=== PATIENT | female | born 1995 | race Caucasian/White ===

== ENCOUNTER 2023-09-06 20:38 | Inpatient (IN) | payer MEDICAID, SELFPAY ==
[~2023-09-06] VITALS: Ht 152.4 cm; Wt 77.2 kg
[2023-09-06 21:40] LABS: HEMATOCRIT 41.2 % (36.0-47.0); HEMOGLOBIN 13.9 g/dl (12.0-15.5); MEAN CORPUSCULAR HEMOGLOBIN 29.5 pg (27.0-33.0); MEAN CORPUSCULAR HGB CONC 33.7 g/dl (32.0-36.5); MEAN CORPUSCULAR VOLUME 87.5 fl (80.0-96.0); PLATELET COUNT, AUTOMATED 387 10^3/uL (150-450); RED BLOOD COUNT 4.71 10^6/uL (4.00-5.40); WHITE BLOOD COUNT 11.7 10^3/uL (4.0-10.0)
[2023-09-06 22:08] LABS: AMPHETAMINES LEVEL URINE NEGATIVE (NEGATIVE); BARBITURATES URINE NEGATIVE (NEGATIVE); BENZODIAZEPINES URINE NEGATIVE (NEGATIVE); COCAINE METABOLITE URINE NEGATIVE (NEGATIVE)
[2023-09-06 22:09] LABS: METHADONE URINE NEGATIVE (NEGATIVE); OPIATES URINE NEGATIVE (NEGATIVE); PHENCYCLIDINE URINE NEGATIVE (NEGATIVE)
[2023-09-06] MEDS ORDERED: LORazepam 1 MG TAB PO STA (22:10)
[2023-09-06 22:11] LABS: ETHYL ALCOHOL (ETHANOL) < 0.003 % (0.000-0.010)
[2023-09-06 22:13] LABS: ALBUMIN 4.6 G/DL (3.2-5.2); ALKALINE PHOSPHATASE 81 U/L (46-116); ALT/SGPT 20 U/L (7.0-40); AST/SGOT 24 U/L (<34); BILIRUBIN,DIRECT 0.1 MG/DL (<0.4); BILIRUBIN,TOTAL 0.4 MG/DL (0.3-1.2); BLOOD UREA NITROGEN 11 MG/DL (9-23); CARBON DIOXIDE LEVEL 22 MMOL/L (20-31); CHLORIDE LEVEL 110 MMOL/L (98-107); CREATININE FOR GFR 0.59 MG/DL (0.55-1.30); GLOMERULAR FILTRATION RATE > 60.0 (>60); GLUCOSE, FASTING 108 MG/DL (60-100); POTASSIUM SERUM 4.5 MMOL/L (3.5-5.1); SALICYLATE LEVEL < 3.0 MG/DL (<30); SODIUM LEVEL 144 MMOL/L (136-145); TOTAL PROTEIN 7.8 G/DL (5.7-8.2)
[2023-09-06 22:14] LABS: CANNABINOIDS URINE POSITIVE (NEGATIVE)
[2023-09-06 22:15] LABS: THYROID STIMULATING HORMONE 0.949 uIU/ML (0.55-4.78)
[2023-09-06 22:28] LABS: HCG, SERUM QUALITATIVE NEGATIVE (NEGATIVE)
[2023-09-07] MEDS ORDERED: IBUPROFEN 400MG TAB PO PRN (00:05)
[2023-09-07] MEDS ORDERED: ACETAMINOPHEN TAB 650MG DOSE (2X325MG) PO PRN (00:05)
[2023-09-07] MEDS ORDERED: MAALOX 30 ML SUSP *UDC PO PRN (00:05)
[2023-09-07] MEDS ORDERED: MOM 30ML SUSPENSION UDC PO PRN (00:05)
[2023-09-07] MEDS ORDERED: LORazepam 1 MG TAB PO PRN (00:05)
[2023-09-07] MEDS ORDERED: NICOTINE 21MG/24HR 1 EA TRANSDERMAL TD PRN (00:05)
[2023-09-07] MEDS ORDERED: MED REC CURRENTLY UNOBTAINABLE XX SCH (01:05)
[2023-09-07 06:40] VITALS: BP 148/103; TEMP 98.2; O2SAT 97
[2023-09-07] MEDS: OLANZapine 5 MG TAB PO SCH ×2 (10:24→22:01)
[2023-09-07 16:39] VITALS: BP 123/70; TEMP 97.9; O2SAT 100
[2023-09-08 06:51] VITALS: BP 136/84; TEMP 96.9; O2SAT 98
[2023-09-08] MEDS: OLANZapine 5 MG TAB PO SCH ×2 (09:15→20:57)
[2023-09-08 16:19] VITALS: BP 137/74; TEMP 98.5; O2SAT 98
[2023-09-09 06:48] VITALS: BP 123/76; TEMP 98; O2SAT 98
[2023-09-09] MEDS: OLANZapine 5 MG TAB PO SCH ×2 (08:10→20:26)
[2023-09-09 15:38] VITALS: BP 130/80; TEMP 98.1; O2SAT 98
[2023-09-09] MEDS: OLANZapine ORAL DISINTEGRATING TAB 5MG PO PRN (15:41)
[2023-09-10 06:50] VITALS: BP 103/55; TEMP 97.5; O2SAT 100
[2023-09-10] MEDS: OLANZapine 5 MG TAB PO SCH (08:46)
[2023-09-10 18:00] VITALS: BP 172/89; TEMP 98.1; O2SAT 99
[2023-09-10] MEDS: OLANZapine 10 MG TAB PO SCH (20:03)
[2023-09-11 06:39] VITALS: BP 138/78; TEMP 97.6; O2SAT 100
[2023-09-11] MEDS: OLANZapine 5 MG TAB PO SCH (09:33)
[2023-09-11 18:05] VITALS: BP 134/91; TEMP 98.2
[2023-09-11] MEDS: OLANZapine 10 MG TAB PO SCH (20:42)
[2023-09-12 06:29] VITALS: BP 132/79; TEMP 97.4; O2SAT 97
[2023-09-12] MEDS: OLANZapine 5 MG TAB PO SCH (09:03)
[2023-09-12] MEDS: OLANZapine 10 MG TAB PO SCH (21:30)
[2023-09-12] MEDS: traZODone 50 MG TAB PO PRN (21:30)
[2023-09-13 06:41] VITALS: BP 125/81; TEMP 97.2; O2SAT 97
[2023-09-13] MEDS: OLANZapine 5 MG TAB PO SCH (08:47)
[2023-09-13 16:52] VITALS: BP 131/81; TEMP 97.8; O2SAT 98
[2023-09-13] MEDS: traZODone 50 MG TAB PO PRN (21:01)
[2023-09-13] MEDS: OLANZapine 10 MG TAB PO SCH (21:02)
[2023-09-14 06:39] VITALS: BP 136/79; TEMP 98.1; O2SAT 99
[2023-09-14] MEDS: OLANZapine 10 MG TAB PO SCH ×2 (08:36→20:40)
[2023-09-14] MEDS: OLANZapine ORAL DISINTEGRATING TAB 5MG PO PRN (16:28)
[2023-09-14 16:34] VITALS: BP 125/86; TEMP 97.6; O2SAT 98
[2023-09-14] MEDS: traZODone 50 MG TAB PO PRN (20:40)
[2023-09-15 06:27] VITALS: BP 133/70; TEMP 97.3; O2SAT 98
[2023-09-15] MEDS: OLANZapine 10 MG TAB PO SCH ×2 (08:31→20:32)
[2023-09-15 18:30] VITALS: BP 120/82; TEMP 97.1
[2023-09-15] MEDS: diphenhydrAMINE 25MG CAP PO PRN (20:32)
[2023-09-15] MEDS: traZODone 50 MG TAB PO PRN (20:33)
[2023-09-16 06:34] VITALS: BP 123/77; TEMP 98.6; O2SAT 100
[2023-09-16] MEDS: OLANZapine 10 MG TAB PO SCH ×2 (09:15→20:31)
[2023-09-16 19:01] VITALS: BP 130/72; TEMP 97.1
[2023-09-16] MEDS: diphenhydrAMINE 25MG CAP PO PRN (20:31)
[2023-09-16] MEDS: traZODone 50 MG TAB PO PRN (20:31)
[2023-09-17 06:25] VITALS: BP 118/67; TEMP 98.9; O2SAT 98
[2023-09-17] MEDS: OLANZapine 10 MG TAB PO SCH ×2 (07:57→20:55)
[2023-09-17] MEDS: diphenhydrAMINE 25MG CAP PO PRN (07:57)
[2023-09-17] MEDS ORDERED: hydrOXYzine 50 MG TAB PO PRN (11:55)
[2023-09-17] MEDS: hydrOXYzine 50 MG TAB PO PRN (13:11)
[2023-09-17] MEDS: OLANZapine ORAL DISINTEGRATING TAB 5MG PO PRN (16:38)
[2023-09-17 17:52] VITALS: BP 132/83; TEMP 97.4; O2SAT 98
[2023-09-17] MEDS: traZODone 50 MG TAB PO PRN (20:55)
[2023-09-18 06:34] VITALS: BP 102/60; TEMP 97.7; O2SAT 98
[2023-09-18] MEDS: OLANZapine 10 MG TAB PO SCH ×2 (08:18→21:08)
[2023-09-18] MEDS: hydrOXYzine 50 MG TAB PO PRN ×2 (09:55→17:02)
[2023-09-18 16:16] VITALS: BP 123/84; TEMP 97.4; O2SAT 100
[2023-09-18] MEDS: traZODone 50 MG TAB PO PRN (21:09)
[2023-09-19 06:36] VITALS: BP 109/66; TEMP 97.2; O2SAT 98
[2023-09-19] MEDS: OLANZapine 10 MG TAB PO SCH ×2 (08:07→21:00)
[2023-09-19] MEDS: hydrOXYzine 50 MG TAB PO PRN ×2 (08:07→14:10)
[2023-09-19 17:16] VITALS: BP 130/85; TEMP 98.3
[2023-09-19] MEDS: traZODone 50 MG TAB PO PRN (21:00)
[2023-09-20 06:52] VITALS: BP 133/68; TEMP 99; O2SAT 98
[2023-09-20] MEDS: hydrOXYzine 50 MG TAB PO PRN (08:00)
[2023-09-20] MEDS: OLANZapine 10 MG TAB PO SCH (08:00)
[2023-09-20] MEDS ORDERED: OLAN1TAB20 PO ×2 (13:14)
[2023-09-20] MEDS ORDERED: TRAZ-252 PO (13:14)
[2023-09-20] MEDS ORDERED: HYDR50TA70 PO (13:14)
== END 2023-09-20 14:05 | disposition home or self-care (01) | DRG 751 ==
LOC: M ED 20:38 → EEVIPCON 09-07 00:04 → M ED INP 09-07 00:04 → M PSY 09-07 01:15
PROVIDERS: ADMIT Student in an Organized Health Care Education/Training Program; ATTEND Student in an Organized Health Care Education/Training Program
PROC: 8E0ZXY6 Isolation (ICD-10-PCS; principal; 2023-09-07)
DX: F29 Unspecified psychosis not due to a substance or known physiological condition (principal); U07.1 COVID-19; R45.851 Suicidal ideations; R45.850 Homicidal ideations; F43.10 Post-traumatic stress disorder, unspecified; F17.200 Nicotine dependence, unspecified, uncomplicated; Z71.6 Tobacco abuse counseling

== ENCOUNTER 2024-06-03 15:53 | Emergency (ER) | payer MEDICAID, OTHER ==
[~2024-06-03] VITALS: Ht 152.4 cm; Wt 91.5 kg
[~2024-06-03 15:53] MED LIST: HYDR50TA70 PO; OLAN1TAB20 PO; TRAZ-186 PO; TRAZ-252 PO; ZYPR10TA PO
[2024-06-03 16:57] LABS: BASO # 0.1 10^3/uL (0.0-0.2); BASO % 0.4 % (0.0-1.0); EOS # 0.1 10^3/uL (0.0-0.5); EOS % 0.5 % (0.0-3.0); HEMATOCRIT 42.1 % (36.0-47.0); HEMOGLOBIN 14.4 g/dl (12.0-15.5); LYMPH # 3.1 10^3/uL (1.5-5.0); LYMPH % 23.5 % (24.0-44.0); MEAN CORPUSCULAR HEMOGLOBIN 30.3 pg (27.0-33.0); MEAN CORPUSCULAR HGB CONC 34.2 g/dl (32.0-36.5); MEAN CORPUSCULAR VOLUME 88.6 fl (80.0-96.0); MONO # 0.7 10^3/uL (0.0-0.8); MONO % 5.2 % (2.0-8.0); NEUTROPHILS # 9.1 10^3/uL (1.5-8.5); NEUTROPHILS % 70.1 % (36.0-66.0); PLATELET COUNT, AUTOMATED 397 10^3/uL (150-450); RED BLOOD COUNT 4.75 10^6/uL (4.00-5.40)
[2024-06-03 17:13] LABS: LIPASE 39 U/L (12-53)
[2024-06-03 17:15] LABS: ALBUMIN 4.3 G/DL (3.2-5.2); ALKALINE PHOSPHATASE 94 U/L (46-116); ALT/SGPT 35 U/L (7.0-40); AST/SGOT 27 U/L (<34); BILIRUBIN,DIRECT 0.1 MG/DL (<0.4); BILIRUBIN,TOTAL 0.4 MG/DL (0.3-1.2); BLOOD UREA NITROGEN 9 MG/DL (9-23); CALCIUM LEVEL 9.9 MG/DL (8.5-10.1); CARBON DIOXIDE LEVEL 23 MMOL/L (20-31); CHLORIDE LEVEL 108 MMOL/L (98-107); CREATININE FOR GFR 0.77 MG/DL (0.55-1.30); GLOMERULAR FILTRATION RATE > 60.0 (>60); GLUCOSE, FASTING 91 MG/DL (60-100); POTASSIUM SERUM 3.6 MMOL/L (3.5-5.1); SODIUM LEVEL 139 MMOL/L (136-145); TOTAL PROTEIN 7.7 G/DL (5.7-8.2)
[2024-06-03 17:23] LABS: HCG, SERUM QUALITATIVE NEGATIVE (NEGATIVE)
[2024-06-03] MEDS ORDERED: PROC1CRE5 PR (20:01)
[2024-06-03 20:19] VITALS: BP 124/78; TEMP 98.8; O2SAT 98
== END 2024-06-03 20:22 | disposition home or self-care (01) ==
LOC: M ED 15:53
DX: K64.8 Other hemorrhoids (principal); F17.200 Nicotine dependence, unspecified, uncomplicated; F10.10 Alcohol abuse, uncomplicated; F12.10 Cannabis abuse, uncomplicated; Z79.899 Other long term (current) drug therapy

== ENCOUNTER → 2024-06-26 | Outpatient (CLI) | payer OTHER ==
[~2024-06-26] MED LIST changes: +PROC1CRE5 PR
[2024-06-26 09:29] LABS: HEMATOCRIT 40.3 % (36.0-47.0); HEMOGLOBIN 13.8 g/dl (12.0-15.5); MEAN CORPUSCULAR HEMOGLOBIN 30.2 pg (27.0-33.0); MEAN CORPUSCULAR HGB CONC 34.2 g/dl (32.0-36.5); MEAN CORPUSCULAR VOLUME 88.2 fl (80.0-96.0); PLATELET COUNT, AUTOMATED 354 10^3/uL (150-450); RED BLOOD COUNT 4.57 10^6/uL (4.00-5.40); WHITE BLOOD COUNT 7.7 10^3/uL (4.0-10.0)
[2024-06-26 09:41] LABS: ALBUMIN 3.8 G/DL (3.2-5.2); ALKALINE PHOSPHATASE 84 U/L (46-116); ALT/SGPT 14 U/L (7.0-40); AST/SGOT 8 U/L (<34); BILIRUBIN,TOTAL 0.3 MG/DL (0.3-1.2); BLOOD UREA NITROGEN 12 MG/DL (9-23); CALCIUM LEVEL 9.8 MG/DL (8.5-10.1); CARBON DIOXIDE LEVEL 27 MMOL/L (20-31); CHLORIDE LEVEL 110 MMOL/L (98-107); CHOLESTEROL LEVEL 171 MG/DL (<200); CHOLESTEROL RISK RATIO 3.19 (<5); CREATININE FOR GFR 0.75 MG/DL (0.55-1.30); GLOMERULAR FILTRATION RATE > 60.0 (>60); GLUCOSE, FASTING 84 MG/DL (60-100); HDL CHOLESTEROL 53.5 MG/DL (>40); LDL CHOLESTEROL 103.7 MG/DL (<100); MAGNESIUM LEVEL 1.9 MG/DL (1.8-2.4); NON-HDL-C 117.5 MG/DL; POTASSIUM SERUM 4.1 MMOL/L (3.5-5.1); SODIUM LEVEL 142 MMOL/L (136-145); TRIGLYCERIDES LEVEL 69 MG/DL (<150)
[2024-06-26 09:42] LABS: FREE T4 1.26 NG/DL (0.89-1.76)
[2024-06-26 09:43] LABS: PROLACTIN 8.91 NG/ML; THYROID STIMULATING HORMONE 0.863 uIU/ML (0.55-4.78); TOTAL 25(OH) VITAMIN D 14.5 NG/ML (20.0-100.0)
[2024-06-26 09:48] LABS: HEMOGLOBIN A1c 4.8 % (4.0-6.0)
== END ==
LOC: M LAB 08:00
PROVIDERS: ATTEND Nurse Practitioner Psychiatric/Mental Health
DX: F43.22 Adjustment disorder with anxiety (principal)

== ENCOUNTER 2024-09-13 16:47 | Emergency (ER) | payer OTHER ==
[2024-09-13 17:19] LABS: BASO # 0.1 10^3/uL (0.0-0.2); BASO % 0.5 % (0.0-1.0); EOS # 0.1 10^3/uL (0.0-0.5); EOS % 0.8 % (0.0-3.0); HEMATOCRIT 41.6 % (36.0-47.0); HEMOGLOBIN 13.9 g/dl (12.0-15.5); LYMPH # 2.6 10^3/uL (1.5-5.0); LYMPH % 16.6 % (24.0-44.0); MEAN CORPUSCULAR HEMOGLOBIN 29.1 pg (27.0-33.0); MEAN CORPUSCULAR HGB CONC 33.4 g/dl (32.0-36.5); MEAN CORPUSCULAR VOLUME 87.2 fl (80.0-96.0); MONO % 6.3 % (2.0-8.0); NEUTROPHILS # 11.7 10^3/uL (1.5-8.5); NEUTROPHILS % 75.5 % (36.0-66.0); PLATELET COUNT, AUTOMATED 386 10^3/uL (150-450); RED BLOOD COUNT 4.77 10^6/uL (4.00-5.40); WHITE BLOOD COUNT 15.5 10^3/uL (4.0-10.0)
[2024-09-13] MEDS: MORPHINE 2 MG/ML 1ML VIAL IV PRN (17:20)
[2024-09-13] MEDS: ONDANSETRON 4MG 2ML VIAL IV ONE (17:20)
[2024-09-13 17:57] LABS: INR 0.94; PARTIAL THROMBOPLASTIN TIME 26.8 SECONDS (24.8-34.2); PROTHROMBIN TIME 12.9 SECONDS (12.5-14.5)
[2024-09-13] MEDS ORDERED: ISOVUE-370 76% 100ML VIAL As Ordered ONE (18:07)
[2024-09-13 18:23] LABS: ETHYL ALCOHOL (ETHANOL) < 0.003 % (0.000-0.010); LIPASE 39 U/L (12-53)
[2024-09-13 18:24] LABS: AMYLASE 101 U/L (30-118)
[2024-09-13 18:25] LABS: ALKALINE PHOSPHATASE 91 U/L (35-104); ALT/SGPT 17 U/L (7.0-40); AST/SGOT 20 U/L (<34); BILIRUBIN,DIRECT < 0.1 MG/DL (<0.4); BILIRUBIN,TOTAL 0.3 MG/DL (0.3-1.2); CK-MB VALUE MASS < 1.0 NG/ML (<3.6); TOTAL PROTEIN 7.7 G/DL (5.7-8.2)
[2024-09-13 18:26] LABS: CPK CREATINE PHOSPHOKINASE 90 U/L (34-145); MB/CK RELATIVE INDEX 1.11 (< OR =4)
[2024-09-13 19:20] VITALS: BP 129/83; TEMP 98; O2SAT 97
== END 2024-09-13 19:52 | disposition home or self-care (01) ==
LOC: M ED 16:47
DX: S01.81XA Laceration without foreign body of other part of head, initial encounter (principal); S20.219A Contusion of unspecified front wall of thorax, initial encounter; V47.0XXA Car driver injured in collision with fixed or stationary object in nontraffic accident, initial encounter; F31.9 Bipolar disorder, unspecified; E66.9 Obesity, unspecified; Y92.410 Unspecified street and highway as the place of occurrence of the external cause; Y93.89 Activity, other specified; Y99.9 Unspecified external cause status; Z79.899 Other long term (current) drug therapy
CPT/HCPCS: 12014; 70450; 71260; 72125; 74177; 80047; 80076; 82077; 82150; 82550; 82553; 83605; 83690; 84484; 84702; 85025; 85610; 85730; 86850; 86900; 86901; 93041; 94760; 96374; 96375; 96376; 99285; J2405; Q9967

== ENCOUNTER 2024-09-21 12:03 | Emergency (ER) | payer OTHER ==
[~2024-09-21] VITALS: Ht 152.4 cm; Wt 104.5 kg
[2024-09-21 13:59] VITALS: BP 119/85; TEMP 97.1; O2SAT 98
== END 2024-09-21 14:03 | disposition home or self-care (01) ==
LOC: M ED 12:03
DX: Z48.02 Encounter for removal of sutures (principal); Z79.899 Other long term (current) drug therapy

== ENCOUNTER 2025-01-05 20:38 | Emergency (ER) | payer OTHER ==
[~2025-01-05] VITALS: Ht 152.4 cm; Wt 108.5 kg
[2025-01-05 20:41] VITALS: BP 130/87; TEMP 97.3; O2SAT 94
== END 2025-01-05 21:34 | disposition left against medical advice (07) ==
LOC: M ED 20:38
DX: Z53.21 Procedure and treatment not carried out due to patient leaving prior to being seen by health care provider (principal)

== ENCOUNTER 2025-08-10 17:04 | Inpatient (IN) | payer OTHER ==
[~2025-08-10] VITALS: Ht 154.9 cm; Wt 95.6 kg
[2025-08-10 17:59] LABS: PLATELET COUNT, AUTOMATED 387 10^3/uL (150-450)
[2025-08-10 18:29] LABS: AMPHETAMINES LEVEL URINE NEGATIVE (NEGATIVE); BARBITURATES URINE NEGATIVE (NEGATIVE); BENZODIAZEPINES URINE NEGATIVE (NEGATIVE); COCAINE METABOLITE URINE NEGATIVE (NEGATIVE); METHADONE URINE NEGATIVE (NEGATIVE); OPIATES URINE NEGATIVE (NEGATIVE); PHENCYCLIDINE URINE NEGATIVE (NEGATIVE)
[2025-08-10 18:30] LABS: CANNABINOIDS URINE POSITIVE (NEGATIVE)
[2025-08-10 18:32] LABS: ETHYL ALCOHOL (ETHANOL) < 0.003 % (0.000-0.010)
[2025-08-10 18:33] LABS: SALICYLATE LEVEL < 3.0 MG/DL (<30)
[2025-08-10 18:39] LABS: ALT/SGPT 33 U/L (7.0-40); AST/SGOT 60 U/L (<34); CALCIUM LEVEL 9.2 MG/DL (8.5-10.1); CARBON DIOXIDE LEVEL 23 MMOL/L (20-31); CHLORIDE LEVEL 106 MMOL/L (98-107); CREATININE FOR GFR 0.64 MG/DL (0.55-1.30); GLOMERULAR FILTRATION RATE > 90.0 (>60); POTASSIUM SERUM 4.9 MMOL/L (3.5-5.1); SODIUM LEVEL 142 MMOL/L (136-145)
[2025-08-10 18:44] LABS: HCG, SERUM QUALITATIVE NEGATIVE (NEGATIVE)
[2025-08-10] MEDS ORDERED: MAALOX 30 ML SUSP *UDC PO PRN (20:45)
[2025-08-10] MEDS ORDERED: MOM 30 ML SUSPENSION UDC PO PRN (20:45)
[2025-08-10] MEDS ORDERED: HALOPERIDOL 5 MG TAB PO PRN (20:45)
[2025-08-11 00:29] VITALS: BP 112/76; TEMP 97.8; O2SAT 100
[2025-08-11] MEDS ORDERED: VITA200032 PO (08:43)
[2025-08-11] MEDS ORDERED: FLUO40CA PO (08:43)
[2025-08-11] MEDS ORDERED: VILO100C PO (08:43)
[2025-08-11] MEDS ORDERED: OLAN1TAB70 PO (08:43)
[2025-08-11] MEDS ORDERED: HYDR50CA2 PO (08:43)
[2025-08-11] MEDS ORDERED: HOME MED LIST COMPLETE! XX SCH (08:45)
[2025-08-11] MEDS: FLUoxetine 20 MG CAP PO SCH (09:49)
[2025-08-11] MEDS: NICOTINE 14 MG/24 HR TRANSDERMAL TD SCH (15:29)
[2025-08-11 18:09] VITALS: BP 119/69; TEMP 97.5
[2025-08-11] MEDS: traZODone 50 MG TAB PO PRN (20:18)
[2025-08-11] MEDS: OLANZapine 5 MG TAB PO SCH (20:18)
[2025-08-11] MEDS ORDERED: OLANZapine 5 MG TAB PO SCH (21:00)
[2025-08-11] MEDS: LORazepam 1 MG TAB PO PRN (23:27)
[2025-08-12 06:29] VITALS: BP 104/60; TEMP 96.7; O2SAT 99
[2025-08-12 08:12] LABS: CHOLESTEROL LEVEL 156.0 MG/DL (<200); CHOLESTEROL RISK RATIO 3.13 (<5); LDL CHOLESTEROL 89.5 MG/DL (<100); NON-HDL-C 106.3 MG/DL; TRIGLYCERIDES LEVEL 84.0 MG/DL (<150)
[2025-08-12 15:14] VITALS: BP 108/59; TEMP 97.5; O2SAT 99
[2025-08-13 06:43] VITALS: BP 120/68; TEMP 97; O2SAT 98
[2025-08-13] MEDS: HALOPERIDOL 5 MG TAB PO PRN (11:57)
[2025-08-13 15:07] VITALS: BP 98/60; TEMP 97.3; O2SAT 100
[2025-08-14] MEDS ORDERED: OLANZapine ORAL DISINTEGRATING TAB 5MG PO ONE (08:30)
[2025-08-14] MEDS: NICOTINE POLACRILEX 2 MG GUM PO PRN (20:29)
[2025-08-15 06:34] VITALS: BP 111/72; TEMP 97.4; O2SAT 97
[2025-08-15 14:30] VITALS: BP 133/58; TEMP 97.9; O2SAT 97
[2025-08-16 14:32] VITALS: BP 121/71; TEMP 97.8; O2SAT 98
[2025-08-16] MEDS: ACETAMINOPHEN 325 MG TAB PO PRN (21:25)
[2025-08-17 06:34] VITALS: BP 146/73; TEMP 97.6; O2SAT 96
[2025-08-17] MEDS ORDERED: OLAN1TAB70 PO (08:29)
[2025-08-17] MEDS ORDERED: FLUO-365 PO (08:29)
[2025-08-17] MEDS: IBUPROFEN 400 MG TAB PO PRN (08:36)
== END 2025-08-17 12:11 | disposition home or self-care (01) | DRG 751 ==
LOC: M ED 17:04 → M ED INP 20:43 → M PSY 23:41
PROVIDERS: ADMIT Psychiatry & Neurology Neurology; ATTEND Psychiatry & Neurology Neurology
DX: F29 Unspecified psychosis not due to a substance or known physiological condition (principal); R45.851 Suicidal ideations; F12.90 Cannabis use, unspecified, uncomplicated; Z91.52 Personal history of nonsuicidal self-harm; Z65.3 Problems related to other legal circumstances; Z63.8 Other specified problems related to primary support group; R74.01 Elevation of levels of liver transaminase levels

== ENCOUNTER → 2025-08-26 | Outpatient (REF) | payer BC, OTHER ==
[~2025-08-26] MED LIST changes: +FLUO-365 PO; +FLUO40CA PO; +HYDR50CA2 PO; +OLAN1TAB70 PO; +VILO100C PO; +VITA200032 PO
== END ==
LOC: M LAB REF 11:51
PROVIDERS: ATTEND Physician Assistant
DX: J02.9 Acute pharyngitis, unspecified (principal)